=== PATIENT | female | born 1960 | race Two or more races ===

== ENCOUNTER → 2025-06-15 | Outpatient (CLI) | payer MEDICAID, SELFPAY ==
--- NOTE | 2025-06-15 17:08 | XR_ITS ---
Examination: CT chest with intravenous contrast CT chest without intravenous contrast 2-D reconstructions Date and time of exam: June 15, 2025, 1727 hours INDICATIONS: Chest pain beginning 1 week ago CTDI:vol (mGy) 19.1 DLP: (mGycm) 677 Technique: Multiple axial sections of the thorax have been obtained. 3 mm slice thickness, from the hemidiaphragms to above the apices of the lungs. Mediastinal and lung density settings have been obtained. Intravenous contrast administered 60 cc [id number]. Noncontrast images have also been obtained. 2-D sagittal coronal images obtained. Low dose protocols were performed. One or more of the following dose reduction techniques were used; automated exposure control, adjustment of the mA and/or KV according to patient size, use of iterative reconstruction technique. Findings: No thoracic aortic aneurysm dilatation or dissection No pulmonary artery emboli on this 9 CTA study 13 mm right tracheobronchial lymph node 14 mm subcarinal lymph node Neoplastic pulmonary mass in the left upper lobe contiguous with the mediastinum and thoracic aortic arch, 10 x 6 x 7 cm Multiple additional bilateral lung masses, the largest in the left lower lobe, 7 x 4.7 cm No lobar pneumonia Moderate osteopenia No visualized liver or splenic lesion Contracted gallbladder No pancreatic or adrenal mass Visualized abdominal aorta appears intact No hydronephrosis IMPRESSION: Mediastinal lymphadenopathy Multiple pulmonary masses, including 10 x 7 cm pulmonary mass left upper lobe contiguous with the mediastinum and 7 x 4.7 cm pulmonary mass in the left lower lobe, differential would include lung carcinoma, metastatic pulmonary nodular disease
== END | disposition home or self-care (01) ==
PROVIDERS: PCP Family Medicine; Referring Provider Physician Assistant; Visit Provider Physician Assistant
DX: R59.0 Localized enlarged lymph nodes (principal); R91.8 Other nonspecific abnormal finding of lung field
CPT/HCPCS: 71270; A4649; Q9967